=== PATIENT | female | born 1985 | race Caucasian/White ===

== ENCOUNTER 2020-03-06 12:07 | Observation (INO) | payer OTHER ==
[~2020-03-06 12:07] MED LIST: GLYCOPYRROLATE 1 MG/5 ML VIAL ONE; NALOXONE HCL INJ/PF 0.4 MG/1 ML SDV ONE; NEOSTIGMINE METHYLSULFATE 10 MG/10 ML VIAL ONE; SUCCINYLCHOLINE CHLORIDE INJ 200 MG/10 ML VIAL ONE
[2020-03-06] MEDS ORDERED: RINGERS SOLUTION,LACTATED 1,000 ML IV ONE (12:30)
[2020-03-06] MEDS ORDERED: ONDANSETRON HCL INJ/PF 4 MG/2 ML SDV IV ONE (12:30)
--- NOTE | 2020-03-06 12:34 | ER Document Report ---
ED Medical Screen (RME) - General Chief Complaint: Abdominal Pain Stated Complaint: VOMITING,ABDOMINAL PAIN Time Seen by Provider: 03/06/20 12:23 Primary Care Provider: CARLOS COUCH PA-C [Primary Care Provider] - Follow up as needed Mode of Arrival: Ambulatory Information source: Patient Notes: HPI; 34-year-old female status post bilateral tubal ligation on February 25 presents to the emergency room stating that she has not had a normal bowel movement since surgery. She has tried doing enemas and suppositories with minimal relief. States she was seen at [place] [facility] on Tuesday was given IV fluids, had an x-ray was told she was constipated but there was no bowel obstruction. Also complaining of remittent left-sided abdominal pain she describes as cramping, that comes and goes since the surgery. Complaining of nausea and vomiting for the past 2 days. States is now unable to tolerate anything p.o. Denies fevers. Denies any urinary symptoms. Denies any travel, denies any COVID-19 exposure. Had a negative COVID-19 test prior to her surgery. PE: Alert and oriented x3. Moderate distress noted. Lungs were clear to auscultation without rales, rhonchi, or wheezes. Heart tachycardic without murmurs, rubs, gallops. Abdomen slightly distended but is soft with hypoactive bowel sounds. Nontender to palpation. I have greeted and performed a rapid initial assessment of this patient. A comprehensive ED assessment and evaluation of the patient, analysis of test results and completion of the medical decision making process will be conducted by additional ED providers. I have specifically instructed the patient or family members with the patient to immediately return to any nursing staff should anything change in the patient's condition or with their chief complaint. - Related Data Allergies/Adverse Reactions: No Known Allergies Allergy (Verified 08/09/13 17:40) Home Medications: Zofran Past Medical History - Immunizations Hx Diphtheria, Pertussis, Tetanus Vaccination: Yes Physical Exam - Vital signs Vitals: Temp Pulse Resp BP Pulse Ox 98.1 F 113 H 16 95/61 L 99 03/06/20 12:12 03/06/20 12:12 03/06/20 12:12 03/06/20 12:12 03/06/20 12:12 Course - Vital Signs Vital signs: Temp Pulse Resp BP Pulse Ox 98.1 F 113 H 16 95/61 L 99 03/06/20 12:24 03/06/20 12:12 03/06/20 12:12 03/06/20 12:12 03/06/20 12:12 Doctor's Discharge - Discharge Referrals: CARLOS COUCH, MEJIA [Primary Care Provider] - Follow up as needed
[2020-03-06 13:10] LABS: HEMATOCRIT 40.4 % (36.0-47.0); HEMOGLOBIN 14.1 g/dL (12.0-15.5); MEAN CORPUSCULAR HEMOGLOBIN 26.2 pg (27.0-33.4); MEAN CORPUSCULAR HGB CONC 34.9 g/dL (32.0-36.0); MEAN CORPUSCULAR VOLUME 75 fl (80-97); PLATELET COUNT 337 10^3/uL (150-450); RED BLOOD COUNT 5.39 10^6/uL (3.72-5.28); RED CELL DISTRIBUTION WIDTH 14.3 % (11.5-14.0); WHITE BLOOD COUNT 15.9 10^3/uL (4.0-10.5)
[2020-03-06 13:32] LABS: ALBUMIN 4.8 g/dL (3.5-5.0); ALKALINE PHOSPHATASE 118 U/L (38-126); ASPARTATE AMINO TRANSFERASE 43 U/L (14-36); BILIRUBIN,DIRECT 0.1 mg/dL (0.0-0.4); BILIRUBIN,TOTAL 0.9 mg/dL (0.2-1.3); BLOOD UREA NITROGEN 39 mg/dL (7-20); CALCIUM 9.6 mg/dL (8.4-10.2); CARBON DIOXIDE 34 mmol/L (22-30); CHLORIDE 61 mmol/L (98-107); GLUCOSE 127 mg/dL (75-110); TOTAL PROTEIN 8.1 g/dL (6.3-8.2)
--- NOTE | 2020-03-06 13:34 | ER Document Report ---
ED GI/ - General Chief Complaint: Abdominal Pain Stated Complaint: VOMITING,ABDOMINAL PAIN Time Seen by Provider: 03/06/20 12:23 Primary Care Provider: CARLOS COUCH PA-C [Primary Care Provider] - Follow up as needed Mode of Arrival: Ambulatory Notes: CHIEF COMPLAINT: Abdominal pain, constipation, vomiting HPI: 34-year-old female presenting for abdominal pain with constipation for 10 d ays following tubal ligation done at [facility]. Patient states she has tried suppositories and enemas at home without resolving the constipation completely. Began having vomiting several days ago, states the SPINDLE SETTER at [facility] did call her in [employer] which seems to work intermittently. She went to the emergency department at [place] several days ago states they did a KUB and told her she was constipated, she has not presented at [facility] for reevaluation and said choosing to come to [facility] now for evaluation of same complaint. Has not had a fever. ROS: See HPI - all other systems were reviewed and are otherwise negative Constitutional: no fever Eyes: no drainage, no blurred vision ENT: no runny nose, no sore throat Cardiovascular: no chest pain Resp: no SOB, no cough GI: + vomiting, no diarrhea, + abdominal pain, positive constipation : no dysuria Integumentary: no rash Allergy: no hives Musculoskeletal: no extremity pain or swelling Neurological: no numbness/tingling, no weakness MEDICATIONS: I agree with the patient medications as charted by the RN. ALLERGIES: I agree with the allergies as charted by the RN. PAST MEDICAL HISTORY/PAST SURGICAL HISTORY: Reviewed and agree as charted by RN. SOCIAL HISTORY: Reviewed and agree as charted by RN. FAMILY HISTORY: No significant familial comorbid conditions directly related to patient complaint EXAM: Reviewed vital signs as charted by RN. CONSTITUTIONAL: Alert and oriented and responds appropriately to questions. Well-appearing; well-nourished, no acute distress HEAD: Normocephalic; atraumatic EYES: PERRL; Conjunctivae clear, sclerae non-icteric ENT: normal nose; no rhinorrhea; moist mucous membranes; pharynx without lesions noted, no uvula edema or deviation, no tonsillar hypertrophy, phonation normal NECK: Supple without meningismus; non-tender; no cervical lymphadenopathy, no masses CARD: RRR; no murmurs, no clicks, no rubs, no gallops; symmetric distal pulses RESP: Normal chest excursion without splinting or tachypnea; breath sounds clear and equal bilaterally; no wheezes, no rhonchi, no rales, pulse oximetry 97% on room air not hypoxic ABD/GI: Normal bowel sounds; non-distended; soft, no specific focal tenderness elicited on examination of the abdomen, the laparoscopic sites appear intact with minimal bruising, no erythema no discharge, no rebound, no guarding; no palpable organomegaly or masses. BACK: The back appears normal and is non-tender to palpation, there is no CVA tenderness EXT: Normal ROM in all joints; non-tender to palpation; no cyanosis, no effusions, no edema SKIN: Normal color for age and race; warm; dry; good turgor; no acute lesions noted NEURO: Moves all extremities equally; Motor and sensory function intact PSYCH: The patient's mood and manner are appropriate. Grooming and personal hygiene are appropriate. MDM: 34-year-old female presenting with constipation and vomiting following laparoscopic surgery for tubal ligation at [facility] 10 days ago. Has not yet presented there for reevaluation of her symptoms. Has an appointment on 12 March. Initial screening labs and CT imaging placed by triage process. - Related Data Allergies/Adverse Reactions: No Known Allergies Allergy (Verified 08/09/13 17:40) Home Medications: Zofran Past Medical History - General Information source: Patient - Social History Smoking Status: Unknown if Ever Smoked Family History: None Patient has homicidal ideation: No - Immunizations Hx Diphtheria, Pertussis, Tetanus Vaccination: Yes Physical Exam - Vital signs Vitals: Temp Pulse Resp BP Pulse Ox 98.1 F 113 H 16 95/61 L 99 03/06/20 12:12 03/06/20 12:12 03/06/20 12:12 03/06/20 12:12 03/06/20 12:12 Course - Re-evaluation Re-evalutation: 03/06/20 14:00 CT report indicates a ventral hernia that appears to be somewhat incarcerated with a loop of bowel with a jejunal obstruction. I spoke with attending Dr. Head who indicates that should speak with our surgical attending prior to transferring patient to [facility]. I spoke with Dr. Dial who will come see the patient. Patient also noted to have a sodium of 117, and giving normal saline, Dr. Dial requests D5 lactated Ringer's as well. Patient is on seizure precautions and on the monitor. Her potassium was 2.8 I am also replacing potassium 03/06/20 14:11 Dr. Dial has seen the patient and will admit - Vital Signs Vital signs: Temp Pulse Resp BP Pulse Ox 98.1 F 113 H 16 95/61 L 99 03/06/20 12:24 03/06/20 12:12 03/06/20 12:12 03/06/20 12:12 03/06/20 12:12 - Laboratory Result Diagrams: 03/06/20 12:58 03/06/20 12:58 Laboratory results interpreted by me: 03/06/20 03/06/20 12:58 12:58 WBC 15.9 H RBC 5.39 H MCV 75 L MCH 26.2 L RDW 14.3 H Band Neutrophils % 1 L Lymphocytes % (Manual) 11 L Abs Neuts (Manual) 12.4 H Abs Monocytes (Manual) 1.6 H Sodium 117.4 L* Potassium 2.8 L* Chloride 61 L Carbon Dioxide 34 H Anion Gap 22 H BUN 39 H Creatinine 1.45 H Est GFR ( Amer) 50 L Est GFR (MDRD) Non-Af 42 L Glucose 127 H AST 43 H ALT 94 H Discharge - Discharge Clinical Impression: Incarcerated hernia, Hyponatremia, Hypokalemia Condition: Fair Disposition: ADMITTED INPATIENT Admitting Provider: Surgicalist - Dr. Dial Unit Admitted: Surgical Floor Referrals: CARLOS COUCH PA-C [Primary Care Provider] - Follow up as needed
[2020-03-06 13:38] LABS: ANION GAP 22 (5-19)
[2020-03-06 13:40] LABS: POTASSIUM 2.8 mmol/L (3.6-5.0)
--- NOTE | 2020-03-06 13:44 | RADIOLOGY REPORT (SQ) ---
EXAM DESCRIPTION: CT ABD/PELVIS WITH IV ONLY IMAGES COMPLETED DATE/TIME: 03/06/2020 1:21 pm REASON FOR STUDY: abdominal pain COMPARISON: None. TECHNIQUE: CT scan of the abdomen and pelvis performed using helical scanning technique with dynamic intravenous contrast injection. No oral contrast. Images reviewed with lung, soft tissue, and bone windows. Reconstructed coronal and sagittal MPR images reviewed. Delayed images for evaluation of the urinary system also acquired. All images stored on PACS. All CT scanners at this facility use dose modulation, iterative reconstruction, and/or weight based d osing when appropriate to reduce radiation dose to as low as reasonably achievable (ALARA). [facility]: Dose Right [facility]: CareDose [facility]: Dose Right [facility]: Teradose 4D [facility]: Group Therapy Records CONTRAST TYPE AND DOSE: contrast/concentration: Isovue 350.00 mg/ml; Total Contrast Delivered: 90.0 ml; Total Saline Delivered: 60.7 ml RENAL FUNCTION: None required. The patient is less than 50 years old. RADIATION DOSE: CT Rad equipment meets quality standard of care and radiation dose reduction techniq ues were employed. CTDIvol: 9.2 - 12.9 mGy. DLP: 1236 mGy-cm.. LIMITATIONS: None. FINDINGS: LOWER CHEST: No significant findings. No nodules or infiltrates. LIVER: Normal size. No masses. No dilated ducts. SPLEEN: Normal size. No focal lesions. PANCREAS: No masses. No significant calcifications. No adjacent inflammation or peripancreatic fluid collections. Pancreatic duct not dilated. GALLBLADDER: No identified stones by CT criteria. No inflammatory changes to suggest cholecystitis. ADRENAL GLANDS: No significant masses or asymmetry. RIGHT KIDNEY AND URETER: No solid masses. No significant calcifications. No hydronephrosis or hyd roureter. LEFT KIDNEY AND URETER: No solid masses. No significant calcifications. No hydronephrosis or hydr oureter. AORTA AND VESSELS: No aneurysm. No dissection. Renal arteries, SMA, celiac without stenosis. RETROPERITONEUM: No retroperitoneal adenopathy, hemorrhage or masses. BOWEL AND PERITONEAL CAVITY: There are some dilated loops of jejunum on the left. This appears to be related to a relatively narrow ventral hernia seen on image 52 series 3 with a small portion of coni l within it. . APPENDIX: Normal. PELVIS: No mass. No free fluid. Normal bladder. ABDOMINAL WALL: Narrow ventral hernia, measuring about 18 mm. Containing a small loop of bowel. The re appears to be associated jejunum bowel obstruction. BONES: No significant or acute findings. OTHER: No other significant finding. IMPRESSION: There appears to be incarcerated hernia in the left periumbilical region resulting in je junal obstruction. COMMENT: Pertinent findings on the imaging study reported as a CRITICAL RESULT to MOOSE MORFIN NP at13:37 on 03/06/2020. Category of Critical Result: Incarcerated hernia with jejunal obstruction. TECHNICAL DOCUMENTATION: JOB ID: [id number] Quality ID # [id number]: Final reports with documentation of one or more dose reduction techniques (e.g., Au tomated exposure control, adjustment of the mA and/or kV according to patient size, use of iterative reconstruction technique) 2010 [employer]- All Rights Reserved Reading location - IP/workstation name: [email or web address]
[2020-03-06 13:49] LABS: ABSOLUTE LYMPHOCYTES# (MANUAL) 1.9 10^3/uL (0.5-4.7); ABSOLUTE MONOCYTES # (MANUAL) 1.6 10^3/uL (0.1-1.4); BAND NEUTROPHILS % (MANUAL) 1 % (3-5); BASOPHILS % (MANUAL) 0 % (0-2); EOSINOPHILS % (MANUAL) 0 % (0-6); LYMPHOCYTES % (MANUAL) 11 % (13-45); MONOCYTES % (MANUAL) 10 % (3-13); SEGMENTED NEUTROPHILS % (MAN) 77 % (42-78); TOTAL CELLS COUNTED 100
[2020-03-06 13:50] LABS: ANISOCYTOSIS SLIGHT; PLATELET COMMENT ADEQUATE; TOXIC GRANULATION SLIGHT
[2020-03-06] MEDS ORDERED: NORMAL SALINE 1000 ML 1,000 ML IV ONE ×2 (13:55→22:28)
[2020-03-06] MEDS ORDERED: DEXTROSE 5%-LACTATED RINGERS 1,000 ML IV ONE (13:59)
[2020-03-06] MEDS: POTASSI CL 20 MEQ/50 ML RIDER 20 MEQ/50 ML RTUPB IV SCH ×3 (14:06→22:59)
[2020-03-06] MEDS ORDERED: CEFAZOLIN INJ 1 GM VIAL IV ONE (15:01)
--- NOTE | 2020-03-06 15:01 | PDOC H&P ---
History of Present Illness Admission Date/PCP: 03/06/20 14:29 CARLOS Aamir IZA Patient complains of: Abdominal pain with vomiting History of Present Illness: RONI SILVER is a 34 year old female is about 10 days post to by ligation at [facility], patient has been complaining of pain and abdominal area around the umbilicus and vomiting since January. Past Surgical History Past Surgical History: Reports: Other - Tubal ligation about 10 days ago at [facility] Social History Smoking Status: Unknown if Ever Smoked Family History Family History: None Parental Family History Reviewed: Yes Children Family History Reviewed: No Sibling(s) Family History Reviewed.: No Medication/Allergy Home Medications: No Home Medications 03/07/20 Allergies/Adverse Reactions: No Known Allergies Allergy (Verified 03/06/20 15:59) Review of Systems Constitutional: PRESENT: other - Denies fever no chills Gastrointestinal: PRESENT: abdominal pain, vomiting Physical Exam Vital Signs: Temp Pulse Resp BP Pulse Ox 98.1 F 113 H 24 H 119/58 L 100 03/06/20 12:24 03/06/20 12:12 03/06/20 14:01 03/06/20 14:00 03/06/20 14:01 Intake & Output 03/05/20 03/06/20 03/07/20 06:59 06:59 06:59 Weight 79.2 kg General appearance: PRESENT: severe distress Eye exam: PRESENT: conjunctiva pink Mouth exam: PRESENT: dry mucosa Neck exam: PRESENT: full ROM Respiratory exam: PRESENT: clear to auscultation shari Cardiovascular exam: PRESENT: tachycardia Pulses: PRESENT: normal radial pulses Vascular exam: PRESENT: normal capillary refill GI/Abdominal exam: PRESENT: soft, tenderness - Some fullness of the infra umbilical area with tenderness. No erythema noted. Rectal exam: PRESENT: deferred Extremities exam: PRESENT: full ROM Musculoskeletal exam: PRESENT: ambulatory Neurological exam: PRESENT: alert, oriented to person, oriented to place, oriented to time, oriented to situation Psychiatric exam: PRESENT: appropriate affect Skin exam: PRESENT: normal color, warm Results Laboratory Results: 03/06/20 12:58 03/06/20 12:58 03/06/20 03/06/20 12:58 12:58 WBC 15.9 H RBC 5.39 H Hgb 14.1 Hct 40.4 MCV 75 L MCH 26.2 L MCHC 34.9 RDW 14.3 H Plt Count 337 Seg Neutrophils % Not Reportable Sodium 117.4 L* Potassium 2.8 L* Chloride 61 L Carbon Dioxide 34 H Anion Gap 22 H BUN 39 H Creatinine 1.45 H Est GFR ( Amer) 50 L Glucose 127 H Calcium 9.6 Total Bilirubin 0.9 AST 43 H Alkaline Phosphatase 118 Total Protein 8.1 Albumin 4.8 Impressions: Abdomen/Pelvis CT 03/06/20 12:31 IMPRESSION: There appears to be incarcerated hernia in the left periumbilical region resulting in jejunal obstruction. Assessment & Plan - Diagnosis (1) Incarcerated incisional umbilical hernia Is this a current diagnosis for this admission?: Yes (2) Hypokalemia Is this a current diagnosis for this admission?: Yes (3) Hyponatremia Is this a current diagnosis for this admission?: Yes - Time Time Spent: 30 to 50 Minutes - Inpatient Certification Medical Necessity: Need For IV Fluids, Need for Pain Control, Need for IV Antibiotics, Need for Surgery - Plan Summary Plan Summary: 34-year-old female close to my ligation about 10 days ago complaining of pain along the umbilical site with vomiting for the past several days. She came into the ED with sodium of 117 chloride of 61 and potassium of 2.8. CT scan of the abdomen showed incarcerated umbilical incisional hernia with bowel obstruction around the jejunal level. Patient is tender along infraumbilical area with some fullness. No erythema on the skin. Plans: Hydrate and correct electrolyte imbalance Start IV antibiotics 2 OR for reduction and repair of incisional umbilical hernia.
[2020-03-06] MEDS ORDERED: CEFAZOLIN 2 GM/D5W RTU 2 GM/50 ML RTUPB IV PRN (15:10)
[2020-03-06] MEDS ORDERED: PHARMACY COMMUNICATION ORDER MC NR (15:15)
[2020-03-06] MEDS ORDERED: KETOROLAC TROMETHAMINE 60 MG/2 ML SDV ONE (16:43)
[2020-03-06] MEDS ORDERED: FENTANYL CITRATE INJ/PF 100 MCG/2 ML AMPUL ONE (16:43)
[2020-03-06] MEDS ORDERED: ONDANSETRON HCL INJ/PF 4 MG/2 ML SDV ONE ×2 (16:44→19:17)
[2020-03-06] MEDS ORDERED: HYDROMORPHONE HCL INJ/PF 2 MG/ML AMPULE ONE (16:44)
[2020-03-06] MEDS ORDERED: DEXAMETHASONE SOD PHOSPHATE INJ 4 MG/1 ML VIAL ONE (16:44)
[2020-03-06] MEDS ORDERED: MIDAZOLAM 2 MG/2 ML INJ ONE (16:44)
[2020-03-06] MEDS ORDERED: PROPOFOL INJ 200 MG/20 ML VIAL IV ONE (16:45)
[2020-03-06 16:52] LABS: ABSOLUTE EOSINOPHILS # (AUTO) 0.1 10^3/uL (0.0-0.6); ABSOLUTE LYMPHOCYTES (AUTO) 1.5 10^3/uL (0.5-4.7); ABSOLUTE MONOCYTES (AUTO) 1.4 10^3/uL (0.1-1.4); ABSOLUTE NEUT (AUTO) 8.3 10^3/uL (1.7-8.2); BASOPHILS % (AUTO) 0.3 % (0-2); EOSINOPHILS % (AUTO) 0.5 % (0-6); HEMATOCRIT 35.5 % (36.0-47.0); HEMOGLOBIN 12.3 g/dL (12.0-15.5); MEAN CORPUSCULAR HGB CONC 34.8 g/dL (32.0-36.0); MEAN CORPUSCULAR VOLUME 75 fl (80-97); MONOCYTES % (AUTO) 12.3 % (3-13); PLATELET COUNT 234 10^3/uL (150-450); RED BLOOD COUNT 4.75 10^6/uL (3.72-5.28); RED CELL DISTRIBUTION WIDTH 14.1 % (11.5-14.0); SEGMENTED NEUTROPHILS % (AUTO) 73.9 % (42-78); TOTAL CELLS COUNTED % (AUTO) 100 %; WHITE BLOOD COUNT 11.3 10^3/uL (4.0-10.5)
[2020-03-06] MEDS ORDERED: CEFAZOLIN INJ 1 GM VIAL ONE (17:08)
[2020-03-06 17:10] LABS: ANION GAP 13 (5-19); BLOOD UREA NITROGEN 31 mg/dL (7-20); CALCIUM 8.4 mg/dL (8.4-10.2); CARBON DIOXIDE 36 mmol/L (22-30); CHLORIDE 69 mmol/L (98-107); GLUCOSE 112 mg/dL (75-110)
[2020-03-06 17:15] LABS: POTASSIUM 2.2 mmol/L (3.6-5.0)
[2020-03-06] MEDS ORDERED: LIDOCAINE 2% INJ-PF (20 MG/ML) 10 ML AMPUL ONE (17:31)
[2020-03-06] MEDS ORDERED: POTASSI CL 20 MEQ/50 ML RIDER 20 MEQ/50 ML RTUPB IV ONE (17:32)
[2020-03-06] MEDS ORDERED: BUPIVACAINE HCL 0.25% /EPINEPHRINE INJ/PF 30 ML SDV ONE (17:57)
[2020-03-06] MEDS ORDERED: DIPHENHYDRAMINE HCL 50 MG/ML VIAL IV PRN (18:25)
[2020-03-06] MEDS ORDERED: FENTANYL CITRATE INJ/PF 100 MCG/2 ML AMPUL IV PRN ×3 (18:25)
[2020-03-06] MEDS ORDERED: MORPHINE SULFATE 10 MG/ML INJ IV PRN ×2 (18:25→18:57)
[2020-03-06] MEDS ORDERED: ONDANSETRON HCL INJ/PF 4 MG/2 ML SDV IV PRN ×2 (18:25→18:59)
[2020-03-06] MEDS ORDERED: PROMETHAZINE HCL INJ 25 MG/1 ML VIAL IV PRN ×2 (18:25)
[2020-03-06] MEDS ORDERED: MEPERIDINE HCL/PF INJ 25 MG/1 ML DISP.SYRIN IV PRN (18:25)
[2020-03-06] MEDS ORDERED: OXYCODONE-ACETAMINOPHEN 5-325 MG TABLET PO PRN ×2 (18:25)
--- NOTE | 2020-03-06 18:56 | Operative Report ---
Operative Report DATE OF SURGERY: 03/06/20 PREOPERATIVE DIAGNOSIS: Incarcerated incisional umbilical hernia POSTOPERATIVE DIAGNOSIS: Same OPERATION: Reduction and repair of incarcerated incisional umbilical hernia SURGEON: DEUCE BEAN ANESTHESIA: GA TISSUE REMOVED OR ALTERED: None COMPLICATIONS: None ESTIMATED BLOOD LOSS: 10 cc QUANTITATIVE BLOOD LOSS: 10 INTRAOPERATIVE FINDINGS: Incarcerated incisional hernia, jejunum. Small bowel was very adherent around the defect which appears to be a trocar site. And unraveled Vicryl suture was just pulled out on the fascia and above the small bowel. PROCEDURE: After adequate general anesthesia the abdomen was then prepped and draped in the usual sterile fashion. Appropriate timeout was called. Next an infraumbilical incision was made over the previous incision. In's visual incision was extended laterally and medially more towards the left lateral area. Release of the subcutaneous fat was done bluntly and segment of small bowel was noted. This was just slightly dusky but appears to be viable. This was stuck into the fascia area. Therefore gentle dissection with the use of peanut was done to release the bowel from the adhesion on the fascia. A small extension of the fascia distally was done to have a better dissection of the small bowel. The small bowel finally was released and pushed down into the abdominal cavity. The fascia was then closed with interrupted [id number] sutures using 0 Vicryl. The fascial defect was about 2 cm in diameter and extended to above half centimeter distally. A primary repair was done to expedite the the procedure since patient's potassium being low as well as sodium. After the fascia was closed it was then injected with Marcaine and subcu irrigated with saline. Skin was closed with 4-0 Monocryl and reinforced with the neyda. Sterile dressings placed over the operative site. Needle instrument sponge count were all correct estimated blood loss about 10 to 15 cc. Patient brought to recovery room in satisfactory condition.
[2020-03-06] MEDS ORDERED: DEXTROSE 5%-LACTATED RINGERS 1,000 ML IV PRN ×2 (18:59→19:12)
[2020-03-06] MEDS ORDERED: DEXTROSE 50%-WATER 25 GM/50 ML DISP.SYRIN IV PRN ×2 (18:59)
[2020-03-06] MEDS ORDERED: GLUCAGON,HUMAN RECOMB 1 MG INJ SUBCUT PRN (18:59)
[2020-03-06] MEDS ORDERED: NORMAL SALINE 1000 ML 1,000 ML IV PRN (18:59)
[2020-03-06] MEDS ORDERED: DEXTROSE 40% GEL 15 GM TUBE PO PRN ×2 (18:59)
--- NOTE | 2020-03-06 20:43 | RADIOLOGY REPORT (SQ) ---
EXAM DESCRIPTION: XR ABDOMEN 1 VIEW (KUB) COMPLETED DATE/TME: 03/06/2020 15:05 CLINICAL HISTORY: 34 years, Female, Check Placement of NG Tube COMPARISON: None. NUMBER OF VIEWS: TECHNIQUE: LIMITATIONS: None. FINDINGS: The tip of the nasogastric tube is in the most proximal stomach. The side-port of the tube is just beyond the gastroesophageal junction. There are several loops of mildly dilated small bowel. IMPRESSION: The tip of the NG tube is in the most proximal stomach. Small bowel dilatation. copyright 2010 [employer]- All Rights Reserved
[2020-03-06 21:38] LABS: ABSOLUTE LYMPHOCYTES (AUTO) 0.6 10^3/uL (0.5-4.7); ABSOLUTE MONOCYTES (AUTO) 0.6 10^3/uL (0.1-1.4); ABSOLUTE NEUT (AUTO) 7.1 10^3/uL (1.7-8.2); BASOPHILS % (AUTO) 0.3 % (0-2); EOSINOPHILS % (AUTO) 0.1 % (0-6); HEMATOCRIT 32.1 % (36.0-47.0); HEMOGLOBIN 11.2 g/dL (12.0-15.5); LYMPHOCYTES % (AUTO) 7.3 % (13-45); MEAN CORPUSCULAR HEMOGLOBIN 26.3 pg (27.0-33.4); MEAN CORPUSCULAR HGB CONC 34.9 g/dL (32.0-36.0); MEAN CORPUSCULAR VOLUME 75 fl (80-97); MONOCYTES % (AUTO) 6.8 % (3-13); PLATELET COUNT 206 10^3/uL (150-450); RED BLOOD COUNT 4.26 10^6/uL (3.72-5.28); SEGMENTED NEUTROPHILS % (AUTO) 85.5 % (42-78); TOTAL CELLS COUNTED % (AUTO) 100 %; WHITE BLOOD COUNT 8.4 10^3/uL (4.0-10.5)
[2020-03-06 21:58] LABS: ANION GAP 9 (5-19); BLOOD UREA NITROGEN 26 mg/dL (7-20); CALCIUM 7.4 mg/dL (8.4-10.2); CARBON DIOXIDE 33 mmol/L (22-30); CHLORIDE 79 mmol/L (98-107); GLUCOSE 117 mg/dL (75-110)
[2020-03-06 22:06] LABS: POTASSIUM 2.9 mmol/L (3.6-5.0)
[2020-03-07] MEDS: POTASSI CL 20 MEQ/50 ML RIDER 20 MEQ/50 ML RTUPB IV SCH ×3 (03:30→03:32)
[2020-03-07 06:08] LABS: HEMATOCRIT 31.1 % (36.0-47.0); HEMOGLOBIN 10.9 g/dL (12.0-15.5); MEAN CORPUSCULAR HEMOGLOBIN 26.8 pg (27.0-33.4); MEAN CORPUSCULAR HGB CONC 35.2 g/dL (32.0-36.0); MEAN CORPUSCULAR VOLUME 76 fl (80-97); PLATELET COUNT 206 10^3/uL (150-450); RED BLOOD COUNT 4.08 10^6/uL (3.72-5.28); RED CELL DISTRIBUTION WIDTH 13.9 % (11.5-14.0); WHITE BLOOD COUNT 8.8 10^3/uL (4.0-10.5)
[2020-03-07 06:31] LABS: ABSOLUTE LYMPHOCYTES# (MANUAL) 1.1 10^3/uL (0.5-4.7); BAND NEUTROPHILS % (MANUAL) 4 % (3-5); BASOPHILS % (MANUAL) 0 % (0-2); EOSINOPHILS % (MANUAL) 0 % (0-6); LYMPHOCYTES % (MANUAL) 12 % (13-45); MONOCYTES % (MANUAL) 11 % (3-13); SEGMENTED NEUTROPHILS % (MAN) 73 % (42-78); TOTAL CELLS COUNTED 100
[2020-03-07 06:32] LABS: ALKALINE PHOSPHATASE 70 U/L (38-126); ANION GAP 10 (5-19); ASPARTATE AMINO TRANSFERASE 25 U/L (14-36); BILIRUBIN,TOTAL 0.2 mg/dL (0.2-1.3); BLOOD UREA NITROGEN 17 mg/dL (7-20); CALCIUM 7.7 mg/dL (8.4-10.2); CARBON DIOXIDE 29 mmol/L (22-30); CHLORIDE 87 mmol/L (98-107); GLUCOSE 99 mg/dL (75-110); PLATELET COMMENT ADEQUATE; POTASSIUM 3.1 mmol/L (3.6-5.0); TOTAL PROTEIN 5.6 g/dL (6.3-8.2)
--- NOTE | 2020-03-07 12:40 | EKG REPORT ---
SEVERITY:- ABNORMAL ECG - SINUS RHYTHM NONSPECIFIC INTRAVENTRICULAR CONDUCTION DELAY : Confirmed by: Judi Lawosn 07-Mar-2020 12:39:29
[2020-03-07 15:02] VITALS: BP 110/56
--- NOTE | 2020-03-07 16:05 | PDOC DISCHARGE SUMMARY ---
General - Admit/Disc Date/PCP Admission Date/Primary Care Provider: 03/06/20 14:29 CARLOS COUCH Discharge Date: 03/07/20 - Discharge Diagnosis Final Diagnosis: Incarcerated incisional/umbilical hernia Electrolyte imbalance. Dehydration - Assessment Summary: 34-year-old female had a previous tubal ligation at [facility] about 10 days ago. Patient has been complaining of umbilical pains with nausea and vomiting for the past several days. She came to ED yesterday which showed severe dehydration with electrolyte imbalance. She was given fluids and attempt to correct the electrolytes in the ED. She was then taken the OR for emergent reduction of the incisional umbilical hernia and primary repair. Postoperatively the next day patient did very well and had bowel movement and without much pains. Incision looks good and is discharged improved on 03/07/2020 - Additional Information Resuscitation Status: Full code Discharge Diet: As Tolerated - Low fiber for the next 2 to 3 weeks Discharge Activity: Activity As Tolerated - No lifting more than 10 to 15 pounds for the next 3 to 4 weeks, Balance Activity w/Rest, No Lifting Over 10 Pounds Referrals: [facility] [Provider Group] - 03/17/20 8:30 am (WITH DR. BYRNE) Home Medications: No Home Medications 03/07/20 Additional Information: Not taking any medications History of Present Illiness History of Present Illness: RONI SILVER is a 34 year old female is about 10 days post to by ligation at [facility], patient has been complaining of pain and abdominal area around the umbilicus and vomiting since January. Hospital Course Hospital Course: Patient underwent emergency repair of incarcerated incisional/umbilical hernia on 03/06/2020. His electrolytes were still abnormal but been corrected during and after the procedure. On the day of discharge her electrolytes are almost normal and patient able to eat and bowel movement. Physical Exam Vital Signs: Temp Pulse Resp BP Pulse Ox 98.1 F 82 16 110/56 L 98 03/07/20 14:59 03/07/20 14:59 03/07/20 14:59 03/07/20 14:59 03/07/20 14:59 Intake & Output 03/06/20 03/07/20 03/08/20 06:59 06:59 06:59 Intake Total 4933 358 Output Total 1660 400 Balance 3273 -42 Weight 84.2 kg Exam: Exquisite tenderness along the infraumbilical area along laparoscopic incision site. There is some fullness around the area. Results Laboratory Results: WBC 8.8 10^3/uL (4.0-10.5) 03/07/20 05:32 RBC 4.08 10^6/uL (3.72-5.28) 03/07/20 05:32 Hgb 10.9 g/dL (12.0-15.5) L 03/07/20 05:32 Hct 31.1 % (36.0-47.0) L 03/07/20 05:32 MCV 76 fl (80-97) L 03/07/20 05:32 MCH 26.8 pg (27.0-33.4) L 03/07/20 05:32 MCHC 35.2 g/dL (32.0-36.0) 03/07/20 05:32 RDW 13.9 % (11.5-14.0) 03/07/20 05:32 Plt Count 206 10^3/uL (150-450) 03/07/20 05:32 Lymph % (Auto) Not Reportable 03/07/20 05:32 [place] % (Auto) Not Reportable 03/07/20 05:32 Eos % (Auto) Not Reportable 03/07/20 05:32 Baso % (Auto) Not Reportable 03/07/20 05:32 Absolute Neuts (auto) Not Reportable 03/07/20 05:32 Absolute Lymphs (auto) Not Reportable 03/07/20 05:32 Absolute Monos (auto) Not Reportable 03/07/20 05:32 Absolute Eos (auto) Not Reportable 03/07/20 05:32 Absolute Basos (auto) Not Reportable 03/07/20 05:32 Total Counted 100 03/07/20 05:32 Seg Neutrophils % Not Reportable 03/07/20 05:32 Seg Neuts % (Manual) 73 % (42-78) 03/07/20 05:32 Band Neutrophils % 4 % (3-5) 03/07/20 05:32 Lymphocytes % (Manual) 12 % (13-45) L 03/07/20 05:32 Atypical Lymphs % 1 % (0) 03/06/20 12:58 Monocytes % (Manual) 11 % (3-13) 03/07/20 05:32 Eosinophils % (Manual) 0 % (0-6) 03/07/20 05:32 Basophils % (Manual) 0 % (0-2) 03/07/20 05:32 Abs Neuts (Manual) 6.8 10^3/uL (1.7-8.2) 03/07/20 05:32 Abs Lymphs (Manual) 1.1 10^3/uL (0.5-4.7) 03/07/20 05:32 Abs Monocytes (Manual) 1.0 10^3/uL (0.1-1.4) 03/07/20 05:32 Absolute Eos (Manual) 0.0 10^3/uL (0.0-0.6) 03/07/20 05:32 Abs Basophils (Manual) 0.0 10^3/uL (0.0-0.2) 03/07/20 05:32 Toxic Granulation SLIGHT 03/06/20 12:58 Platelet Comment ADEQUATE 03/07/20 05:32 Anisocytosis SLIGHT 03/06/20 12:58 Microcytosis SLIGHT 03/07/20 05:32 Sodium 125.5 mmol/L (137-145) L 03/07/20 05:32 Potassium 3.1 mmol/L (3.6-5.0) L 03/07/20 05:32 Chloride 87 mmol/L (98-107) L 03/07/20 05:32 Carbon Dioxide 29 mmol/L (22-30) 03/07/20 05:32 Anion Gap 10 (5-19) 03/07/20 05:32 BUN 17 mg/dL (7-20) 03/07/20 05:32 Creatinine 0.83 mg/dL (0.52-1.25) 03/07/20 05:32 Est GFR ( Amer) > 60 (>60) 03/07/20 05:32 Est GFR (MDRD) Non-Af > 60 (>60) 03/07/20 05:32 Glucose 99 mg/dL (75-110) 03/07/20 05:32 Calcium 7.7 mg/dL (8.4-10.2) L 03/07/20 05:32 Total Bilirubin 0.2 mg/dL (0.2-1.3) 03/07/20 05:32 Direct Bilirubin 0.0 mg/dL (0.0-0.4) 03/07/20 05:32 Neonat Total Bilirubin Not Reportable 03/07/20 05:32 Neonat Direct Bilirubin Not Reportable 03/07/20 05:32 Neonat Indirect Bili Not Reportable 03/07/20 05:32 AST 25 U/L (14-36) 03/07/20 05:32 ALT 59 U/L (<35) H 03/07/20 05:32 Alkaline Phosphatase 70 U/L (38-126) 03/07/20 05:32 Total Protein 5.6 g/dL (6.3-8.2) L 03/07/20 05:32 Albumin 3.0 g/dL (3.5-5.0) L 03/07/20 05:32 SARS-CoV-2 (PCR) NEGATIVE (NEGATIVE) 03/06/20 14:15 Impressions: Abdomen/Pelvis CT 03/06/20 12:31 IMPRESSION: There appears to be incarcerated hernia in the left periumbilical region resulting in jejunal obstruction. KUB X-Ray 03/06/20 15:05 IMPRESSION: The tip of the NG tube is in the most proximal stomach. Small bowel dilatation. copyright 2011 [employer]- All Rights Reserved Plan Health Concerns: Patient to go back to regular diet but advised against high fiber intake at least for the next 2 weeks. Plan of Treatment: Continue to avoid lifting more than 10 to 15pounds. Follow-up in the clinic in about 10 days Goals: To be able to go back to her normal activity preop Time Spent: Less than 30 Minutes - 20 minutes
== END 2020-03-07 15:45 | disposition home or self-care (01) ==
LOC: ER 12:07 → EH 14:29 → INTOOBSV 14:29 → 4S 20:23
PROVIDERS: ADMIT Surgery; ATTEND Surgery
DX: K43.0 Incisional hernia with obstruction, without gangrene (principal); E87.8 Other disorders of electrolyte and fluid balance, not elsewhere classified; E86.0 Dehydration; E87.6 Hypokalemia; E87.1 Hypo-osmolality and hyponatremia; R00.0 Tachycardia, unspecified; Z03.818 Encounter for observation for suspected exposure to other biological agents ruled out
CPT/HCPCS: 93005; 99285; 96361; 96374; 36415 ×2; 87040; 85025 ×2; 87635; 80053 ×2; 74018; 74177; 93010; 49561; J2250; J3490 ×3; J0690; J1100; J1885; J3010; J2310; J2710; J0330; J2405; J3480 ×2; J7121; J7030; J7120; J2704; C9803; 840; 99140; G0378; J1170